=== PATIENT | male | born 1990 | race Two or more races ===

== ENCOUNTER 2022-10-23 18:23 | Emergency (ER) | payer MEDICAID, OTHER ==
[~2022-10-23] VITALS: Ht 182.9 cm; Wt 145.1 kg
[2022-10-23 18:42] VITALS: BP 145/90
--- NOTE | 2022-10-23 19:57 | NUR ---
Dr. Hinton examining patient.
[2022-10-23] MEDS ORDERED: DOCU-299 PO (20:12)
[2022-10-23] MEDS ORDERED: POLY17PD50 PO (20:12)
[2022-10-23 20:20] VITALS: BP 129/85
--- NOTE | 2022-10-23 20:20 | NUR ---
Patient discharged with v/s stable. Written and verbal after care instructions given and explained. Patient alert, oriented and verbalized understanding of instructions. Ambulatory with steady gait. All questions addressed prior to discharge. ID band removed. Patient advised to follow up with PMD. Rx of Colace and Clearlax given. Patient educated on indication of medication including possible reaction and side effects. Opportunity to ask questions provided and answered.
== END 2022-10-23 20:20 | disposition home or self-care (01) ==
LOC: MED 18:23
DX: R10.32 Left lower quadrant pain (principal); Z79.899 Other long term (current) drug therapy
CPT/HCPCS: 99282

== ENCOUNTER 2022-12-24 16:37 | Emergency (ER) | payer OTHER ==
[~2022-12-24] VITALS: Ht 182.9 cm; Wt 131.5 kg
[~2022-12-24 16:37] MED LIST: DOCU-299 PO; POLY17PD50 PO
[2022-12-24 17:07] VITALS: BP 135/78
[2022-12-24] MEDS ORDERED: ACET-8905 PO (18:05)
[2022-12-24] MEDS ORDERED: NAPR-54 PO (18:05)
[2022-12-24] MEDS ORDERED: AMOX500C25 PO (18:05)
--- NOTE | 2022-12-24 18:14 | NUR ---
Patient discharged with v/s stable. Written and verbal after care instructions given and explained. Patient alert, oriented and verbalized understanding of instructions. Ambulatory with steady gait. All questions addressed prior to discharge. ID band removed. Patient advised to follow up with PMD. Rx of NORCO, AMOXICILLIN, NAPROSYN given. Patient educated on indication of medication including possible reaction and side effects. Opportunity to ask questions provided and answered.
== END 2022-12-24 18:13 | disposition home or self-care (01) ==
LOC: MED 16:37
DX: K04.7 Periapical abscess without sinus (principal); Z79.899 Other long term (current) drug therapy
CPT/HCPCS: 99283

== ENCOUNTER 2023-02-24 13:52 | Emergency (ER) | payer OTHER ==
[~2023-02-24] VITALS: Ht 188 cm; Wt 139.7 kg
[~2023-02-24 13:52] MED LIST changes: +ACET-8905 PO; +AMOX500C25 PO; +NAPR-54 PO
[2023-02-24 14:09] VITALS: BP 127/76; PULSE 71; RESP 16; TEMP 98.2
[2023-02-24] MEDS ORDERED: ALUMINUM HYD/MAG/SIMETHICONE 30 ML UDC PO ONE (14:25)
[2023-02-24 14:42] LABS: BASOPHILS % (AUTO) 0.5 % (0.0-2.0); EOSINOPHILS # (AUTO) 0.2 K/uL (0-0.4); EOSINOPHILS % (AUTO) 1.6 % (0.0-4.0); HEMATOCRIT 43.7 % (36-52); LYMPHOCYTES # (AUTO) 1.7 K/uL (2.0-11.5); LYMPHOCYTES % (AUTO) 16.8 % (20.5-51.1); MEAN CORPUSCULAR HEMOGLOBIN 32 pg (27-31); MEAN CORPUSCULAR HGB CONC 34 g/dL (33-37); MEAN CORPUSCULAR VOLUME 92.4 fL (80-94); MONOCYTES # (AUTO) 0.9 K/uL (0.8-1.0); MONOCYTES % (AUTO) 8.7 % (1.7-9.3); NEUTROPHILS # (AUTO) 7.5 K/uL (1.8-7.7); NEUTROPHILS % (AUTO) 72.4 % (42.2-75.2); PLATELET COUNT (AUTO) 290 K/uL (140-450); RED BLOOD CELL COUNT(AUTO) 4.73 MIL/uL (4.20-6.10); RED CELL DISTRIBUTION WIDTH 12.4 % (11.6-13.7); WHITE BLOOD COUNT (AUTO) 10.4 K/uL (4.8-10.8)
[2023-02-24 14:57] LABS: ALBUMIN 3.8 g/dL (3.4-5.0); ANION GAP 14.1 (8-16); CALCIUM 8.3 mg/dL (8.5-10.1); CARBON DIOXIDE 26.9 mmol/L (21-32); TOTAL BILIRUBIN 0.5 mg/dL (0.0-1.0); TOTAL PROTEIN, SERUM 7.5 g/dL (6.4-8.2)
[2023-02-24] MEDS ORDERED: FAMO-90 PO (15:21)
[2023-02-24] MEDS ORDERED: ATA25 PO (15:21)
== END 2023-02-24 15:39 | disposition home or self-care (01) ==
LOC: MED 13:52
DX: F41.9 Anxiety disorder, unspecified (principal); R12 Heartburn; Z79.899 Other long term (current) drug therapy; Z79.1 Long term (current) use of non-steroidal anti-inflammatories (NSAID); Z79.2 Long term (current) use of antibiotics
CPT/HCPCS: 36415; 80053; 85025; 99283